=== PATIENT | male | born 1990 | race African-American/Black ===

== ENCOUNTER 2017-11-24 21:01 | Emergency (ER) | payer SELFPAY ==
--- NOTE | 2017-11-24 21:37 | RAD ---
SINGLE VIEW OF THE CHEST: 11/24/17 COMPARISON: None. HISTORY: Alcohol and K2 intoxication. Altered mental status. FINDINGS: Single view of the chest shows a normal sized cardiomediastinal silhouette. There is no evidence of c onsolidation, mass, or pleural effusion. There is scoliotic curvature of the spine. IMPRESSION: No evidence of acute cardiopulmonary disease. POS: [facility]
--- NOTE | 2017-11-24 21:38 | CT ---
NONCONTRAST CT HEAD: 11/24/17 HISTORY: Altered mental status. FINDINGS: There is symmetric bilateral basal ganglia calcifications. There is no evidence of an acute infarctio n, hemorrhage, mass effect, or midline shift. The ventricular system is normal in size, shape and pos ition. The visualized paranasal sinuses and mastoid air cells are clear. Calvarial structures are int act. IMPRESSION: No acute intracranial abnormality is demonstrated. POS: [facility]
[2017-11-24 21:42] LABS: Base Excess-Venous -4.6 mmol/L (0 (+/- 2.5)); CO2 Tension (PvCO2) 39.8 mmHg (41.0-51.0); Calcium, Ionized 1.01 mmol/L (1.12-1.32); Hemoglobin - Calc 13.3 g/dL (12.0-18.0); O2 Tension (PvO2) 62.2 mmHg (35.0-45.0); Potassium 3.4 mmol/L (3.4-4.7); T. Carbon Dioxide 22.2 mmol/L (1.0-85.0); vO2 Saturation-calc 89.8 % (94-98)
[2017-11-24 21:55] LABS: Hemoglobin 13.9 g/dL (14.0-18.0); Mean Corpuscular HGB CONC 35.1 g/dL (32.0-36.0); Mean Corpuscular Hemoglobin 35.3 pg (27.0-31.0); Mean Platelet Volume 8.6 fL (7.4-10.4); Platelet Count 150 thou/uL (130-400); RBC Distribution Width 11.2 % (11.5-14.5); Red Blood Cell (RBC) Count 3.93 mill/uL (4.70-6.10); White Blood Cell (WBC) Count 8.7 thou/uL (4.8-10.8)
[2017-11-24 22:05] LABS: #Basophils 0.2 thou/uL (0.0-0.2); #Eosinphils 0.2 thou/uL (0.0-0.7); #Lymphocytes 3.1 thou/uL (1.20-3.40); #Monocytes 0.5 thou/uL (0.11-0.59); #Neutrophils 4.8 thou/uL (1.40-6.50); %Basophils 1.8 % (0.0-1.0); %Eosinophils 1.8 % (0.0-10.0); %Lymphocytes 35.5 % (21.0-51.0); PLT Morphology Comment Appears Adequate
[2017-11-24] MEDS ORDERED: Calcium Gluc 4.6 MEQ/10 ML (100 MG/ML) ONE (22:06)
[2017-11-24 22:10] LABS: ALT (SGPT) 23 U/L (8-55); AST (SGOT) 29 U/L (5-34); Acetaminophen Less than 6.0 mcg/mL (10.0-30.0); Albumin 3.6 g/dL (3.5-5.0); Alcohol 157 mg/dL (Less than 10); Alkaline Phosphatase 60 U/L (40-150); Anion Gap 15 mmol/L (10-20); BUN (Urea Nitrogen) 13 mg/dL (8.9-20.6); Bilirubin, Total 1.2 mg/dL (0.2-1.2); Calc. Creatinine Clearance 0 mL/min (70-130); Calcium 8.1 mg/dL (7.8-10.44); Carbon Dioxide 20 mmol/L (22-29); Chloride 107 mmol/L (98-107); Estimated GFR-MDRD Greater than 90; Globulin 1.9 g/dL (2.4-3.5); Glucose 102 mg/dL (70-105); Potassium 3.5 mmol/L (3.5-5.1); Protein, Total 5.5 g/dL (6.0-8.3); Salicylate Less than 8.0 mg/dL (15.0-30.0); Sodium 138 mmol/L (136-145)
[2017-11-24 22:59] LABS: Bilirubin Negative (Negative); Blood, Urine Negative (Negative); Clarity CLEAR (Clear); Glucose, Urine (Dipstick) Negative (Negative); Leukocyte Negative (Negative); Nitrite Negative (Negative); Protein, Urine (Dipstick) 30 mg/dL (Neg-Trace); Specific Gravity, Urine 1.022 (1.002-1.036); pH, Urine 5.5 (5.0-9.0)
[2017-11-24 23:00] LABS: Bacteria/HPF None Seen HPF (None Seen); Hyaline Casts/LPF 4-6 HYALINE CAST LPF (0-3 Hyaline); Pathc Cast-AUWi Flag 0.29 (0-2.49); RBC/HPF 0-3 HPF (0-3); Squamous Epithelial None Seen HPF (0-3); WBC/HPF 0-3 HPF (0-3)
[2017-11-24 23:08] LABS: Amphetamine Not Detected (NotDetected); Barbiturates Screen Not Detected (NotDetected); Benzodiazepine Screen Not Detected (NotDetected); Cocaine Metabolite Screen Not Detected (NotDetected); Medtox Control Line Valid? VALID (VALID); Medtox Reader # READER 1; Methadone Not Detected (NotDetected); Methamphetamine Not Detected (NotDetected); Opiate Screen Not Detected (NotDetected); Oxycodone Screen Not Detected (NotDetected); Phencyclidine (PCP) Not Detected (NotDetected); THC/Cannabinoid Screen Detected (NotDetected); Tricyclic Screen Not Detected (NotDetected)
== END 2017-11-25 01:37 | disposition home or self-care (01) ==
LOC: ERS 21:01
DX: F19.90 Other psychoactive substance use, unspecified, uncomplicated (principal); F10.129 Alcohol abuse with intoxication, unspecified; Y90.4 Blood alcohol level of 80-99 mg/100 ml
CPT/HCPCS: 36415; 70450; 71045; 80053; 80306; 80307; 81003; 81015; 82330; 82803; 83690; 83735; 85025; 93005; 96374